=== PATIENT | male | born 1945 | race Caucasian/White ===

== ENCOUNTER → 2017-06-01 | Outpatient (CLI) | payer MEDICARE ==
--- NOTE | 2017-06-02 09:47 | CT ---
EXAMINATION TYPE: CT abdomen pelvis w con DATE OF EXAM: 06/01/2017 COMPARISON: 09/02/2014 HISTORY: Periumbilical abdominal pain with history of abdominal hernia repair and cholecystectomy. CT DLP: 1643 mGycm Automated exposure control for dose reduction was used. TECHNIQUE: Helical acquisition of images was performed from the lung bases through the pelvis. CONTRAST: Performed with Oral Contrast and with IV Contrast, patient injected with 100 mL of Isovue 300. FINDINGS: LUNG BASES: No significant abnormality is appreciated. LIVER/GB: Hepatic parenchyma is diffusely hypoattenuated in comparison to that of the spleen, most co mmonly seen in hepatic steatosis. This finding limits evaluation for hepatic masses. No gross evidenc e of hepatic mass is seen. No intrahepatic biliary ductal dilatation. Gallbladder is surgically absen t. PANCREAS: No significant abnormality is seen. SPLEEN: No significant abnormality is seen. ADRENALS: No significant abnormality is seen. KIDNEYS: There is redemonstration of a 8 mm left upper pole nonobstructing renal calculus. The kidney s enhance and excrete symmetrically without hydronephrosis. FREE AIR: No free air is visualized. ADENOPATHY: No greater than 1 cm short axis lymph nodes are seen within the abdomen or pelvis. REPRODUCTIVE ORGANS: The prostate gland is heterogenous containing central zone calcifications and mi ldly enlarged measuring 4.5 cm in transverse dimension. URINARY BLADDER: No significant abnormality is seen. OSSEOUS STRUCTURES: Mild to moderate multilevel degenerative disc disease is present of the visualiz ed thoracolumbar spine. BOWEL: Scattered colonic diverticula are present without pericolonic fat stranding. There is no evid ence of bowel dilatation. Small bowel is also nonenlarged and unremarkable. No focal small bowel wall thickening. OTHER: Right lateral abdominal wall fat attenuated lipomatous lesion measures 6.5 cm favored to repre sent a simple lipoma. This is stable from the prior 2014. Moderate calcific atheromatous changes are present of the abdominal aorta and its branches. IMPRESSION: 1. HEPATIC STEATOSIS. 2. NONOBSTRUCTING 8 MM LEFT RENAL CALCULUS. NO EVIDENCE OF HYDRONEPHROSIS BILATERALLY. 3. COLONIC DIVERTICULOSIS WITHOUT EVIDENCE OF ACUTE DIVERTICULITIS. 4. ENLARGED HETEROGENOUS PROSTATE GLAND.
== END | disposition home or self-care (01) ==
LOC: RADCTMAIN 16:28
PROVIDERS: ATTEND Family Medicine
DX: K76.0 Fatty (change of) liver, not elsewhere classified (principal); N20.0 Calculus of kidney; K57.30 Diverticulosis of large intestine without perforation or abscess without bleeding; N40.0 Benign prostatic hyperplasia without lower urinary tract symptoms
CPT/HCPCS: 74177; Q9967

== ENCOUNTER → 2019-04-20 | Outpatient (CLI) | payer MEDICARE ==
--- NOTE | 2019-04-20 10:56 | US ---
EXAMINATION TYPE: US abdomen complete DATE OF EXAM: 04/20/2019 COMPARISON: NONE CLINICAL HISTORY: R10.9 Abdominal pain. Pain EXAM MEASUREMENTS: Liver Length: 16.8 cm Gallbladder Wall: Surgically absent cm CBD: .6 cm Spleen: 12.6 cm Right Kidney: 10.7 x 4.6 x 5.3 cm Left Kidney: 11.1 x 5.1 x 4.2 cm Pancreas: Tail obscured by overlying bowel gas Liver: There is increased echogenicity of the hepatic parenchyma with diminished visualization of th e portal triads most commonly relating to hepatic steatosis and limiting evaluation for underlying he patic masses. Gallbladder: Surgically absent Evidence for sonographic Mistry's sign: No CBD: wnl Spleen: wnl Right Kidney: wnl Left Kidney: wnl Upper IVC: wnl Abd Aorta: wnl The intrahepatic portion of the IVC and proximal abdominal aorta are within normal limits. Common shu e duct is unremarkable. The visualized portions of the pancreas are homogenous. The spleen is unrem arkable. Kidneys are symmetric and free of hydronephrosis. No renal lesions are seen. IMPRESSION: Sonographic findings most commonly related to hepatic steatosis. Correlate with liver fun ction tests.
== END | disposition home or self-care (01) ==
LOC: RADUSWWP 09:37
PROVIDERS: ATTEND Internal Medicine Gastroenterology
DX: R10.9 Unspecified abdominal pain (principal)
CPT/HCPCS: 76700

== ENCOUNTER → 2020-07-04 | Outpatient (CLI) | payer MEDICARE ==
--- NOTE | 2020-07-04 16:24 | MR ---
EXAMINATION TYPE: MR lumbar spine wo con DATE OF EXAM: 07/04/2020 COMPARISON: Lumbar MRI dated 09/13/2014 HISTORY: Radiculopathy, lumbar region TECHNIQUE: Multiplanar, multisequence images of the lumbar spine were acquired. L1-L2: Posterior disc bulge causes anterior mass effect on the thecal sac. Only mild spinal stenosis. No evident foraminal encroachment. L2-L3: Posterior disc bulge causes anterior mass effect on the thecal sac. There is been progression of the spinal stenosis likely contributed by short pedicles, there is some facet arthropathy change. No significant foraminal encroachment. L3-L4: Posterior broad-based disc bulge is anterior mass effect on the thecal sac. Facet arthropathy with hypertrophy ligamentum flavum causes some posterior lateral mass effect on the thecal sac. Circu mferential extension endplate disc complex encroaches somewhat on the neural foramen greater on the r ight. Spinal stenosis is moderate and has progressed compared to prior exam. L4-L5: Posterior extension endplate disc complex causes anterior mass effect on the thecal sac. Facet arthropathy with hypertrophy ligamentum flavum causes posterior lateral mass effect on the thecal sa c, spinal stenosis has progressed and is moderate, trefoil appearance of the thecal sac is present, c ircumferential extension endplate disc complex and the facet arthropathy encroaches the bilateral for ambar. Lateral recess stenosis is also present as on prior exam. L5-S1: There is facet arthropathy change present with hypertrophy ligamentum flavum. Posterior extens ion endplate disc complex may contact the proximal S1 nerve roots, circumferential extension endplate disc complex results in foraminal encroachment bilaterally, facet arthropathy contributes to cause f oraminal encroachment as well as lateral recess stenosis Lumbar segments are intact. No paraspinal masses are identified. Conus medullaris has a normal appe arance. Again noted is multilevel spondylosis with endplate discogenic marrow signal change. Loss of disc height signal is greatest at L5-S1, multilevel vacuum phenomenon also present. Lumbar vertebral bodies show stable height, alignment. IMPRESSION: There is been some progression of spinal stenosis at L4-5, L3-4 to prior exam. Multilevel degenerativ e disc disease, foraminal encroachment, facet arthropathy.
== END | disposition home or self-care (01) ==
LOC: RADMRIMAIN 12:36
PROVIDERS: ATTEND Family Medicine
DX: M48.061 Spinal stenosis, lumbar region without neurogenic claudication (principal); M51.16 Intervertebral disc disorders with radiculopathy, lumbar region; M12.88 Other specific arthropathies, not elsewhere classified, other specified site
CPT/HCPCS: 72148

== ENCOUNTER → 2020-08-30 | Outpatient (CLI) | payer MEDICARE ==
--- NOTE | 2020-08-30 17:34 | XR ---
EXAMINATION TYPE: XR ankle complete LT DATE OF EXAM: 08/30/2020 COMPARISON: NONE HISTORY: Left ankle swelling. No known injury. M25.572 L ankle pain. TECHNIQUE: AP, oblique, and lateral views of the left ankle obtained FINDINGS: No acute fracture. No dislocation. Ankle mortise is maintained. Large Achilles enthesophyte . Plantar spur. Chronic appearing well-corticated cortical irregularity of the posteromedial distal t ibial metaphysis. Degenerative change of the hindfoot and midfoot articulations. Normal mineralizatio n. No significant soft tissue swelling. No ankle joint effusion. IMPRESSION: 1. No acute fracture or dislocation. 2. Chronic osseous changes as above.
== END | disposition home or self-care (01) ==
LOC: RADXRMAIN 13:56
PROVIDERS: ATTEND Internal Medicine
DX: M25.572 Pain in left ankle and joints of left foot (principal)

== ENCOUNTER 2020-11-11 16:08 | Emergency (ER) | payer MEDICARE ==
[2020-11-11 19:10] LABS: Basophils % (A) 0 %; Eosinophils # (A) 0.1 k/uL (0-0.7); Eosinophils % (A) 1 %; HCT 50.3 % (39.0-53.0); HGB 16.4 gm/dL (13.0-17.5); Lymphocytes # (A) 1.2 k/uL (1.0-4.8); Lymphocytes % (A) 14 %; MCH 30.1 pg (25.0-35.0); MCHC 32.7 g/dL (31.0-37.0); MCV 92.2 fL (80.0-100.0); Mean Platelet Volume 9.4; Monocytes # (A) 0.3 k/uL (0-1.0); Monocytes % (A) 4 %; Neutrophils # (A) 7.2 k/uL (1.3-7.7); Neutrophils % (A) 80 %; Platelet Count 126 k/uL (150-450); RBC 5.46 m/uL (4.30-5.90); RDW 13.8 % (11.5-15.5)
[2020-11-11 19:22] LABS: ALT 34 U/L (4-49); AST 34 U/L (17-59); African American GFR (CKD) >90 (>60 ml/min/1.73 sqM); Albumin 4.8 g/dL (3.5-5.0); Alkaline Phosphatase 83 U/L (38-126); Anion Gap 10 mmol/L; Blood Urea Nitrogen 18 mg/dL (9-20); Calcium 9.7 mg/dL (8.4-10.2); Carbon Dioxide 23 mmol/L (22-30); Chloride 108 mmol/L (98-107); Creatine Kinase 104 U/L (55-170); Glucose 108 mg/dL (74-99); Magnesium 2.2 mg/dL (1.6-2.3); Non-African American GFR(CKD) 85 (>60 ml/min/1.73 sqM); Potassium 4.8 mmol/L (3.5-5.1); Sodium 141 mmol/L (137-145); Total Bilirubin 0.8 mg/dL (0.2-1.3); Total Protein 7.4 g/dL (6.3-8.2)
[2020-11-11 19:24] LABS: INR 0.9 (<1.2); Prothrombin Time 9.8 sec (9.0-12.0)
[2020-11-11 19:25] LABS: Partial Thromboplastin Time 22.3 sec (22.0-30.0)
--- NOTE | 2020-11-11 20:47 | CT ---
EXAMINATION TYPE: CT abdomen pelvis wo con DATE OF EXAM: 11/11/2020 COMPARISON: 06/01/2017 abdominal pain HISTORY: Rectal bleeding and abdominal pain x [address] DLP: 1052.4 mGycm Automated exposure control for dose reduction was used. Lung bases are clear. There is no pleural effusion. Heart size is normal. There is no pericardial eff usion. There are clips from cholecystectomy. Liver spleen stomach pancreas appear intact. The bile du cts are not dilated. There is no adrenal mass. Kidneys show normal size and contour. There is no hydronephrosis. There are a few calculi in the left kidney measuring up to 1 cm. Ureters are not dilated. There is no retroper itoneal adenopathy. There are multiple sigmoid diverticula. There is no diverticulitis. Bladder diste nds smoothly. There is no inguinal hernia. There is prostatic calcification. There is short appendix that appears normal. There is no mesenteric edema. There is no ascites or min e air. There is no bowel obstruction. There is fat density mass in the right lateral abdominal wall c onsistent with a lipoma. This measures 2 cm in thickness. The lumbar vertebra show normal alignment. There is mild degenerative hypertrophic changes in the lum bar spine. There is no compression fracture. The bony pelvis appears intact. Hip joints are intact. T here is some acetabular spurring bilaterally. IMPRESSION: No acute abnormality of the abdomen pelvis. Nonobstructing left renal calculi without significant sayda nge. Sigmoid diverticulosis without diverticulitis.
--- NOTE | 2020-11-11 21:28 | ED ---
GI Bleed HPI - General Chief complaint: GI Bleed Stated complaint: rectal bleeding for 3 days Time Seen by Provider: 11/11/20 18:42 Source: patient, RN notes reviewed Mode of arrival: ambulatory Limitations: no limitations - History of Present Illness Initial comments: 75-year-old male with a prior history of hemorrhoids diverticulitis the past who states he had the onset last evening of some blood on his tissue when he wiped himself. He stated he was some bright red with some dark red blood. He also thought he felt a when he blew be a hemorrhoid. This morning he had more blood some apparent bright red and some dark colored clots in the toilet bowl. He denies any fevers chills nausea vomiting sweats palpitations or other symptoms. MD complaint: blood on toilet paper - Related Data Home Medications Medication Instructions Recorded Confirmed Allopurinol 100 mg PO DAILY 03/14/14 10/04/14 Aspirin 81 mg PO DAILY 03/14/14 10/04/14 Enalapril Maleate 10 mg PO DAILY 03/14/14 10/04/14 Pravastatin Sodium [Pravachol] 80 mg PO HS 09/29/14 10/04/14 Previous Rx's Medication Instructions Recorded Clopidogrel [Plavix] 75 mg PO DAILY #90 tab 03/16/14 atenoloL [Tenormin] 50 mg PO DAILY #90 tab 03/16/14 Hydrocodone/Acetaminophen [[place] 1 each PO Q6HR PRN #20 tab 09/02/14 5-325] Allergies Allergy/AdvReac Type Severity Reaction Status Date / Time No Known Allergies Allergy Verified 11/11/20 16:34 Review of Systems ROS Statement: Those systems with pertinent positive or pertinent negative responses have been documented in the HPI. ROS Other: All systems not noted in ROS Statement are negative. Past Medical History Past Medical History: Hyperlipidemia, Hypertension Additional Past Medical History / Comment(s): SCIACTICA. LT KIDNEY STONE. CHANE IN BOWEL HABITS. URINARY FREQUENCY AT NIGHT. gout, diverticulosis, History of Any Multi-Drug Resistant Organisms: None Reported Past Surgical History: Heart Catheterization With Stent, Hernia Repair Additional Past Surgical History / Comment(s): ORIF LT THUMB FX. COLONOSCOPY. EGD. BILAT ING. AND UMB. HERNIA REPAIR Past Anesthesia/Blood Transfusion Reactions: No Reported Reaction Date of Last Stent Placement:: 02/2014 Past Psychological History: No Psychological Hx Reported Smoking Status: Former smoker Past Alcohol Use History: Daily Past Drug Use History: None Reported - Past Family History Father Family Medical History: Cancer General Exam - General Exam Comments Initial Comments: This a well-developed well-nourished awake alert oriented 3 male Limitations: no limitations General appearance: alert, in no apparent distress Head exam: Present: atraumatic, normocephalic, normal inspection Eye exam: Present: normal appearance, PERRL, EOMI. Absent: scleral icterus, conjunctival injection, periorbital swelling ENT exam: Present: normal exam, mucous membranes moist Neck exam: Present: normal inspection. Absent: tenderness, meningismus, lymphadenopathy Respiratory exam: Present: normal lung sounds bilaterally. Absent: respiratory distress, wheezes, rales, rhonchi, stridor Cardiovascular Exam: Present: regular rate, normal rhythm, normal heart sounds. Absent: systolic murmur, diastolic murmur, rubs, gallop, clicks GI/Abdominal exam: Present: soft, tenderness (Very mild tenderness palpation over the lower abdomen no guarding rebound masses or bruits), normal bowel sounds. Absent: distended, guarding, rebound, rigid Rectal exam: Present: normal inspection, normal rectal tone (Trace heme positive on the Hemoccult card no gross blood on my examination no overt external hemorrhoids no palpable internal hemorrhoids) Extremities exam: Present: normal inspection, full ROM, normal capillary refill. Absent: tenderness, pedal edema, joint swelling, calf tenderness Back exam: Present: normal inspection Neurological exam: Present: alert, oriented X3, CN II-XII intact Psychiatric exam: Present: normal affect, normal mood Skin exam: Present: warm, dry, intact, normal color. Absent: rash Course Vital Signs 11/11/20 16:30 Temperature 97.9 F Pulse Rate 59 L Respiratory 18 Rate Blood Pressure 151/79 O2 Sat by Pulse 95 Oximetry Medical Decision Making - Medical Decision Making I did have a long discussion with the patient and his regarding the findings at this time the patient x-rays normal hemoglobin no elevation of BUN no abdominal pain and stable vital signs. After discussion the patient will be discharged to follow-up with Dr. Russell who is he has seen before we did discuss some return parameters. Hemorrhoid is suspected as the etiology - Lab Data Result diagrams: 11/11/20 18:56 11/11/20 18:56 Lab Results 11/11/20 11/11/20 11/11/20 Range/Units 16:55 18:55 18:56 WBC 9.0 (3.8-10.6) k/uL RBC 5.46 (4.30-5.90) m/uL Hgb 16.4 (13.0-17.5) gm/dL Hct 50.3 (39.0-53.0) % MCV 92.2 (80.0-100.0) fL MCH 30.1 (25.0-35.0) pg MCHC 32.7 (31.0-37.0) g/dL RDW 13.8 (11.5-15.5) % Plt Count 126 L (150-450) k/uL MPV 9.4 Neutrophils % 80 % Lymphocytes % 14 % Monocytes % 4 % Eosinophils % 1 % Basophils % 0 % Neutrophils # 7.2 (1.3-7.7) k/uL Lymphocytes # 1.2 (1.0-4.8) k/uL Monocytes # 0.3 (0-1.0) k/uL Eosinophils # 0.1 (0-0.7) k/uL Basophils # 0.0 (0-0.2) k/uL PT (9.0-12.0) sec INR (<1.2) APTT (22.0-30.0) sec Sodium (137-145) mmol/L Potassium (3.5-5.1) mmol/L Chloride (98-107) mmol/L Carbon Dioxide (22-30) mmol/L Anion Gap mmol/L BUN (9-20) mg/dL Creatinine (0.66-1.25) mg/dL Est GFR (CKD-EPI)AfAm (>60 ml/min/1.73 sqM) Est GFR (CKD-EPI)NonAf (>60 ml/min/1.73 sqM) Glucose (74-99) mg/dL Calcium (8.4-10.2) mg/dL Magnesium (1.6-2.3) mg/dL Total Bilirubin (0.2-1.3) mg/dL AST (17-59) U/L ALT (4-49) U/L Alkaline Phosphatase (38-126) U/L Creatine Kinase (55-170) U/L Troponin I <0.012 (0.000-0.034) ng/mL Total Protein (6.3-8.2) g/dL Albumin (3.5-5.0) g/dL Stool Occult Blood (Negative) Blood Type Blood Type Confirm B Negative Blood Type Recheck Bld Type Recheck Status Antibody Screen Spec Expiration Date 11/11/20 11/11/20 11/11/20 Range/Units 18:56 18:56 18:56 WBC (3.8-10.6) k/uL RBC (4.30-5.90) m/uL Hgb (13.0-17.5) gm/dL Hct (39.0-53.0) % MCV (80.0-100.0) fL MCH (25.0-35.0) pg MCHC (31.0-37.0) g/dL RDW (11.5-15.5) % Plt Count (150-450) k/uL MPV Neutrophils % % Lymphocytes % % Monocytes % % Eosinophils % % Basophils % % Neutrophils # (1.3-7.7) k/uL Lymphocytes # (1.0-4.8) k/uL Monocytes # (0-1.0) k/uL Eosinophils # (0-0.7) k/uL Basophils # (0-0.2) k/uL PT 9.8 (9.0-12.0) sec INR 0.9 (<1.2) APTT 22.3 (22.0-30.0) sec Sodium 141 (137-145) mmol/L Potassium 4.8 (3.5-5.1) mmol/L Chloride 108 H (98-107) mmol/L Carbon Dioxide 23 (22-30) mmol/L Anion Gap 10 mmol/L BUN 18 (9-20) mg/dL Creatinine 0.87 (0.66-1.25) mg/dL Est GFR (CKD-EPI)AfAm >90 (>60 ml/min/1.73 sqM) Est GFR (CKD-EPI)NonAf 85 (>60 ml/min/1.73 sqM) Glucose 108 H (74-99) mg/dL Calcium 9.7 (8.4-10.2) mg/dL Magnesium 2.2 (1.6-2.3) mg/dL Total Bilirubin 0.8 (0.2-1.3) mg/dL AST 34 (17-59) U/L ALT 34 (4-49) U/L Alkaline Phosphatase 83 (38-126) U/L Creatine Kinase 104 (55-170) U/L Troponin I (0.000-0.034) ng/mL Total Protein 7.4 (6.3-8.2) g/dL Albumin 4.8 (3.5-5.0) g/dL Stool Occult Blood Positive (Negative) Blood Type Blood Type Confirm Blood Type Recheck Bld Type Recheck Status Antibody Screen Spec Expiration Date 11/11/20 Range/Units 18:56 WBC (3.8-10.6) k/uL RBC (4.30-5.90) m/uL Hgb (13.0-17.5) gm/dL Hct (39.0-53.0) % MCV (80.0-100.0) fL MCH (25.0-35.0) pg MCHC (31.0-37.0) g/dL RDW (11.5-15.5) % Plt Count (150-450) k/uL MPV Neutrophils % % Lymphocytes % % Monocytes % % Eosinophils % % Basophils % % Neutrophils # (1.3-7.7) k/uL Lymphocytes # (1.0-4.8) k/uL Monocytes # (0-1.0) k/uL Eosinophils # (0-0.7) k/uL Basophils # (0-0.2) k/uL PT (9.0-12.0) sec INR (<1.2) APTT (22.0-30.0) sec Sodium (137-145) mmol/L Potassium (3.5-5.1) mmol/L Chloride (98-107) mmol/L Carbon Dioxide (22-30) mmol/L Anion Gap mmol/L BUN (9-20) mg/dL Creatinine (0.66-1.25) mg/dL Est GFR (CKD-EPI)AfAm (>60 ml/min/1.73 sqM) Est GFR (CKD-EPI)NonAf (>60 ml/min/1.73 sqM) Glucose (74-99) mg/dL Calcium (8.4-10.2) mg/dL Magnesium (1.6-2.3) mg/dL Total Bilirubin (0.2-1.3) mg/dL AST (17-59) U/L ALT (4-49) U/L Alkaline Phosphatase (38-126) U/L Creatine Kinase (55-170) U/L Troponin I (0.000-0.034) ng/mL Total Protein (6.3-8.2) g/dL Albumin (3.5-5.0) g/dL Stool Occult Blood (Negative) Blood Type B Negative Blood Type Confirm Blood Type Recheck No Previous Record Bld Type Recheck Status CABO Indicated Antibody Screen NEGATIVE Spec Expiration Date 11/14/2020 4858 - Radiology Data Radiology results: report reviewed (Imaging reviewed evidence of diverticulosis no diverticulitis), image reviewed Disposition Clinical Impression: GI bleed, Hemorrhoids Disposition: HOME SELF-CARE Condition: Good Instructions (If sedation given, give patient instructions): Gastrointestinal Bleeding (ED), Hemorrhoids (ED) Is patient prescribed a controlled substance at d/c from ED?: No Referrals: Nola Rainey MD [STAFF PHYSICIAN] - 1-2 days
[2020-11-11 21:46] VITALS: BP 173/93; PULSE 58; RESP 16; TEMP 98
== END 2020-11-11 21:49 | disposition home or self-care (01) ==
LOC: EC 16:08
DX: K92.2 Gastrointestinal hemorrhage, unspecified (principal); K64.9 Unspecified hemorrhoids; E78.5 Hyperlipidemia, unspecified; I10 Essential (primary) hypertension; M10.9 Gout, unspecified; Z87.891 Personal history of nicotine dependence; Z79.899 Other long term (current) drug therapy
CPT/HCPCS: 36415; 74176; 80053; 82272; 82550; 83735; 84484; 85025; 85610; 85730; 86850; 86900; 86901; 99285

== ENCOUNTER 2020-12-13 07:52 | Day surgery (SDC) | payer MEDICARE ==
[2020-12-11 09:01] VITALS: BMI 35.6
--- NOTE | 2020-12-13 07:38 | P.GSHP ---
History of Present Illness H&P Date: 12/13/20 CHIEF COMPLAINT: Colon screen HISTORY OF PRESENT ILLNESS: The patient is a 75-year-old male who presents for colon screen. Lower endoscopy was offered for further evaluation and management. PAST MEDICAL HISTORY: Please see list. PAST SURGICAL HISTORY: Please see list. MEDICATIONS: Please see list. ALLERGIES: Please see list. SOCIAL HISTORY: No illicit drug use FAMILY HISTORY: No reports of Crohn disease or ulcerative colitis. REVIEW OF ORGAN SYSTEMS: CONSTITUTIONAL: No reports of fevers or chills. PHYSICAL EXAM: VITAL SIGNS: Stable GENERAL: Well-developed pleasant in no acute distress. HEENT: No scleral icterus. Extraocular movements grossly intact. Moist buccal mucosa. NECK: Supple without lymphadenopathy. CHEST: Unlabored respirations. Equal bilateral excursions. CARDIOVASCULAR: Regular rate and rhythm. Distal 2+ pulses. ABDOMEN: Soft, nontender, nondistended. MUSCULOSKELETAL: No clubbing, cyanosis, or edema. ASSESSMENT: 1. Colon screen. PLAN: 1. Recommend proceeding with a lower endoscopy Past Medical History Past Medical History: GI Bleed, Hyperlipidemia, Hypertension Additional Past Medical History / Comment(s): SCIACTICA. LT KIDNEY STONE. CHANGE IN BOWEL HABITS. URINARY FREQUENCY AT NIGHT. gout, diverticulosis, History of Any Multi-Drug Resistant Organisms: None Reported Past Surgical History: Heart Catheterization With Stent, Hernia Repair Additional Past Surgical History / Comment(s): ORIF LT THUMB FX. COLONOSCOPY. EGD. BILAT ING. AND UMB. HERNIA REPAIR Past Anesthesia/Blood Transfusion Reactions: No Reported Reaction Additional Past Anesthesia/Blood Transfusion Reaction / Comment(s): one episode taking longer to come out of anesthesia after cholecystectomy Date of Last Stent Placement:: 02/2014 Smoking Status: Never smoker - Past Family History Father Family Medical History: Cancer Medications and Allergies Home Medications Medication Instructions Recorded Confirmed Type Allopurinol 100 mg PO DAILY 03/14/14 12/11/20 History Enalapril Maleate 10 mg PO DAILY 03/14/14 12/11/20 History atenoloL [Tenormin] 50 mg PO DAILY #90 tab 03/16/14 12/11/20 Rx Pravastatin Sodium [Pravachol] 80 mg PO HS 09/29/14 12/11/20 History Allergies Allergy/AdvReac Type Severity Reaction Status Date / Time No Known Allergies Allergy Verified 12/11/20 08:52
[~2020-12-13 07:52] MED LIST: LACTATED RINGERS 1,000 ML IV SCH; LIDOCAINE 1% (10MG/ML) FOR IV START INTRADERMA PRN
[2020-12-13 08:36] VITALS: TEMP 97.6
[2020-12-13] MEDS ORDERED: PROPOFOL 10 MG/ML 20 ML VIAL IV ONE (08:45)
[2020-12-13 09:15] VITALS: RESP 16
[2020-12-13 09:35] VITALS: BP 123/70; PULSE 97
--- NOTE | 2020-12-13 09:45 | P.PCN ---
Date of Procedure: 12/13/20 Description of Procedure: PREOPERATIVE DIAGNOSIS: Personal history of colon polyps POSTOPERATIVE DIAGNOSIS: Personal history of colon polyps Descending colon adenoma Internal hemorrhoids, grade 2 OPERATION: Colonoscopy to the ileocecal valve and appendiceal orifice, cecum Colonoscopy with cold forceps biopsy SURGEON: Nola Rainey MD. ANESTHESIA: MAC. INDICATIONS: The patient is an 75-year-old male who presents personal history of colon polyps. Last colonoscopy over 5 years. Benefits and risks were described and informed consent was obtained. DESCRIPTION OF PROCEDURE: The patient had undergone Sutab prep. The patient had been brought into the operating room and laid in the left lateral decubitus position. After adequate intravenous sedation, the rectum was examined with 2% lidocaine jelly. The prostate was unremarkable. External hemorrhoids were encountered. The rectal tone was within normal limits. No lesions were palpated in the rectal vault. An Olympus colonoscope was advanced until the cecum, ileocecal valve and appendiceal orifice were clearly viewed. The prep was good. Sigmoid diverticulosis was encountered. Colonic polyps were found and removed. No evidence of focal colitis was found. Retroflexion of the scope demonstrated grade 2 internal hemorrhoids without active bleeding or inflammation. The colon was desufflated. The patient had tolerated the procedure well. Withdrawal time was over 6 minutes. FINDINGS: Aronchick preparation quality scale 2 (1-5) Internal hemorrhoids, grade 2 with recent inflammation and bleeding External hemorrhoids, grade 2 No arteriovenous malformations. Sigmoid diverticulosis between 20-30 cm from the anal verge Removal of 1 polyps: - Cold forceps biopsy at 45 cm from the anal verge, 4 mm polyp. - Cold forceps biopsy at proximal transverse colon, 4 mm polyp. No focal colitis. RECOMMENDATIONS: Repeat colonoscopy 5 years, 2025 Plan - Discharge Summary Discharge Rx Participant: No New Discharge Prescriptions: Continue Enalapril Maleate 10 mg PO DAILY Allopurinol 100 mg PO DAILY atenoloL [Tenormin] 50 mg PO DAILY #90 tab Pravastatin Sodium [Pravachol] 80 mg PO HS Discharge Medication List Allopurinol 100 mg PO DAILY 03/14/14 [History] Enalapril Maleate 10 mg PO DAILY 03/14/14 [History] atenoloL [Tenormin] 50 mg PO DAILY #90 tab 03/16/14 [Rx] Pravastatin Sodium [Pravachol] 80 mg PO HS 09/29/14 [History] Follow up Appointment(s)/Referral(s): Nola Rainey MD [STAFF PHYSICIAN] - 01/01/21 Patient Instructions/Handouts: *Surgery [facility] - (Anesthesia) Endoscopy Discharge Instructions, Colorectal Polyps (DC), Colonoscopy (DC), Diverticulosis Diet (GEN), Diverticulosis (DC) Activity/Diet/Wound Care/Special Instructions: Repeat colonoscopy in 5 years, 2025 Discharge Disposition: HOME SELF-CARE
== END 2020-12-13 10:02 | disposition home or self-care (01) ==
LOC: ORWHC2ENDO 07:52
PROVIDERS: ATTEND Surgery Plastic and Reconstructive Surgery
DX: Z12.11 Encounter for screening for malignant neoplasm of colon (principal); K63.5 Polyp of colon; K57.30 Diverticulosis of large intestine without perforation or abscess without bleeding; K64.1 Second degree hemorrhoids; Z86.010 Personal history of colon polyps; E78.5 Hyperlipidemia, unspecified; I10 Essential (primary) hypertension; M54.30 Sciatica, unspecified side; I25.10 Atherosclerotic heart disease of native coronary artery without angina pectoris; M10.9 Gout, unspecified; F17.290 Nicotine dependence, other tobacco product, uncomplicated; Z87.442 Personal history of urinary calculi; Z87.19 Personal history of other diseases of the digestive system; R35.0 Frequency of micturition; Z95.5 Presence of coronary angioplasty implant and graft; Z98.890 Other specified postprocedural states; Z90.49 Acquired absence of other specified parts of digestive tract; Z80.9 Family history of malignant neoplasm, unspecified; Z79.899 Other long term (current) drug therapy
CPT/HCPCS: 88305; 45380; J2704

== ENCOUNTER → 2021-05-13 | Outpatient (CLI) | payer MEDICARE ==
[2021-05-13 15:37] LABS: ALT 31 U/L (10-49); AST 17 U/L (14-35); African American GFR (CKD) 86.2 (60.0-200.0); Albumin 4.6 g/dL (3.8-4.9); Albumin/Globulin Ratio 2.54 (1.60-3.17); Alkaline Phosphatase 87 U/L (41-126); BUN/Creat Ratio 18.83 Ratio (12.00-20.00); Blood Urea Nitrogen 18.6 mg/dL (9.0-27.0); Calcium 9.2 mg/dL (8.7-10.3); Carbon Dioxide 22.7 mmol/L (20.0-27.5); Chloride 109 mmol/L (96-109); Chol/HDL Ratio 2.73 Ratio; Creatine Kinase 91 U/L (35-257); Globulin 1.8 g/dL (1.6-3.3); Glucose 111 mg/dL (70-110); LDL Cholesterol,Calculated 59.4 mg/dL (0.0-131.0); Non-African American GFR(CKD) 74.4 (60.0-200.0); Potassium 4.4 mmol/L (3.5-5.5); Sodium 143 mmol/L (135-145); Total Protein 6.4 g/dL (6.2-8.2)
== END | disposition home or self-care (01) ==
LOC: LABWHC1 10:37
PROVIDERS: ATTEND Internal Medicine
DX: Z12.5 Encounter for screening for malignant neoplasm of prostate (principal); I10 Essential (primary) hypertension; E79.0 Hyperuricemia without signs of inflammatory arthritis and tophaceous disease; E78.00 Pure hypercholesterolemia, unspecified; Z29.9 Encounter for prophylactic measures, unspecified
CPT/HCPCS: 80061; 80053; 82550; 36415; G0103

== ENCOUNTER → 2021-10-17 | Outpatient (CLI) | payer MEDICARE ==
[2021-10-17 15:59] LABS: African American GFR (CKD) 97.4 (60.0-200.0); Anion Gap 11.6 mmol/L (10.00-18.00); BUN/Creat Ratio 16.15 Ratio (12.00-20.00); Blood Urea Nitrogen 14.2 mg/dL (9.0-27.0); Calcium 9.2 mg/dL (8.7-10.3); Carbon Dioxide 22.9 mmol/L (20.0-27.5); Non-African American GFR(CKD) 84.1 (60.0-200.0); Potassium 4.1 mmol/L (3.5-5.5); Uric Acid 5.6 mg/dL (3.7-8.7)
== END | disposition home or self-care (01) ==
LOC: LABWHC1 10:23
PROVIDERS: ATTEND Internal Medicine
DX: R73.9 Hyperglycemia, unspecified (principal)
CPT/HCPCS: 36415; 80048; 83036; 84550

== ENCOUNTER → 2021-11-06 | Outpatient (CLI) | payer MEDICARE ==
--- NOTE | 2021-11-06 11:38 | US ---
EXAMINATION TYPE: US duplex aorta DATE OF EXAM: 11/06/2021 COMPARISON: NONE CLINICAL HISTORY: I10 ESSENTIAL (PRIMARY) HYPERTENSION. HTN, smoker TECHNIQUE: Multiple sonographic images of the abdominal aorta are obtained. FINDINGS: EXAM MEASUREMENTS: Abdominal Aorta: Proximal: 2.5 x 2.3cm Mid: 1.8 x 1.7cm Distal: 1.7 x 1.6cm Bifurcation: RT: 1.3 x 1.2cm LT: 1.3 x 1.0cm [place] CREWMEMBER NOTES: No evidence of AAA within visualized portions IMPRESSION: No evidence of AAA
--- NOTE | 2021-11-07 13:40 | US ---
EXAMINATION TYPE: US arterial LE single level DATE OF EXAM: 11/06/2021 10:30 AM CLINICAL HISTORY: I10 ESSENTIAL (PRIMARY) HYPERTENSION. cardiac stent 8 years ago. Weakness, pain lef t leg for years Doppler Waveforms: Right: Multiphasic Left: Multiphasic Pressure Gradients: No significant gradient detected, noncompression of the right posterior tibial ar maddi Ankle-Brachial Indices: Right: 1.11 Left: 1.22 Toe Brachial Indices: Right: 0.75 Left: 0.89 IMPRESSION: Normal ankle-brachial indices
== END | disposition home or self-care (01) ==
LOC: RADUSWWP 09:43
PROVIDERS: ATTEND Internal Medicine
DX: I10 Essential (primary) hypertension (principal); E78.00 Pure hypercholesterolemia, unspecified; R09.89 Other specified symptoms and signs involving the circulatory and respiratory systems; Z87.891 Personal history of nicotine dependence
CPT/HCPCS: 93922; 93979

== ENCOUNTER → 2022-06-03 | Outpatient (CLI) | payer MEDICARE ==
[2022-06-03 16:27] LABS: ALT 25 U/L (10-49); AST 17 U/L (14-35); African American GFR (CKD) 84.4 (60.0-200.0); Albumin 4.6 g/dL (3.8-4.9); Albumin/Globulin Ratio 2.56 (1.60-3.17); Alkaline Phosphatase 82 U/L (41-126); Calcium 9.4 mg/dL (8.7-10.3); Carbon Dioxide 24.7 mmol/L (20.0-27.5); Chloride 108 mmol/L (96-109); Chol/HDL Ratio 2.58 Ratio; Creatine Kinase 119 U/L (35-257); Globulin 1.8 g/dL (1.6-3.3); Glucose 114 mg/dL (70-110); LDL Cholesterol,Calculated 70.3 mg/dL (0.0-131.0); Non-African American GFR(CKD) 72.8 (60.0-200.0); Sodium 143 mmol/L (135-145); Total Protein 6.4 g/dL (6.2-8.2); Uric Acid 6.1 mg/dL (3.7-8.7)
== END | disposition home or self-care (01) ==
LOC: LABWHC1 10:06
PROVIDERS: ATTEND Internal Medicine
DX: E79.0 Hyperuricemia without signs of inflammatory arthritis and tophaceous disease (principal); E78.00 Pure hypercholesterolemia, unspecified; R73.9 Hyperglycemia, unspecified
CPT/HCPCS: 36415; 80053; 80061; 82550; 83036; 84550

== ENCOUNTER → 2022-10-07 | Outpatient (CLI) | payer MEDICARE ==
[2022-10-07 15:49] LABS: Blood Urea Nitrogen 10.8 mg/dL (9.0-27.0); Calcium 9.7 mg/dL (8.7-10.3); Carbon Dioxide 25.5 mmol/L (21.6-31.8); Chloride 110 mmol/L (96-109); Glucose 113 mg/dL (70-110); Potassium 4.7 mmol/L (3.5-5.5); Sodium 145 mmol/L (135-145)
== END | disposition home or self-care (01) ==
LOC: LABWHC1 09:24
PROVIDERS: ATTEND Internal Medicine
DX: R73.9 Hyperglycemia, unspecified (principal)
CPT/HCPCS: 36415; 80048; 83036

== ENCOUNTER → 2023-06-01 | Outpatient (CLI) | payer MEDICARE ==
[2023-06-01 16:07] LABS: ALT 28 U/L (10-49); AST 18 U/L (14-35); Albumin 4.4 g/dL (3.8-4.9); Albumin/Globulin Ratio 2.44 Ratio (1.60-3.17); Alkaline Phosphatase 80 U/L (41-126); Blood Urea Nitrogen 13.1 mg/dL (9.0-27.0); Calcium 9.2 mg/dL (8.7-10.3); Carbon Dioxide 23.9 mmol/L (21.6-31.8); Chloride 110 mmol/L (96-109); Globulin 1.8 g/dL (1.6-3.3); Glucose 116 mg/dL (70-110); LDL Cholesterol,Calculated 63.4 mg/dL (0.0-131.0); PSA Annual Screen 0.257 ng/mL (0.000-4.000); Potassium 4.6 mmol/L (3.5-5.5); Sodium 144 mmol/L (135-145); Total Bilirubin 0.7 mg/dL (0.3-1.2); Total Protein 6.2 g/dL (6.2-8.2); Uric Acid 5.9 mg/dL (3.7-8.7); VLDL Calculation 15.26 mg/dL (5.00-40.00)
== END | disposition home or self-care (01) ==
LOC: LABWHC1 10:58
PROVIDERS: ATTEND Internal Medicine
DX: Z12.5 Encounter for screening for malignant neoplasm of prostate (principal); Z29.9 Encounter for prophylactic measures, unspecified; E78.00 Pure hypercholesterolemia, unspecified; E79.0 Hyperuricemia without signs of inflammatory arthritis and tophaceous disease; R73.9 Hyperglycemia, unspecified
CPT/HCPCS: 80061; 80053; 84550; 83036; 36415; G0103

== ENCOUNTER 2023-08-26 13:35 | Emergency (ER) | payer MEDICARE ==
--- NOTE | 2023-08-26 13:42 | ED ---
GI Bleed HPI - General Source: patient, RN notes reviewed Mode of arrival: ambulatory Limitations: no limitations <Lorna Thompson - Last Filed: 08/26/23 13:41> - General Source: patient, family, RN notes reviewed, old records reviewed - History of Present Illness MD complaint: blood on toilet paper, blood streaked stool <Paulette Najera - Last Filed: 08/27/23 10:28> - General Stated complaint: rectal bleed Time Seen by Provider: 08/26/23 13:41 - History of Present Illness Initial comments: Quick note: 77-year-old male presented to ER with chief complaint of rectal bleeding. He states has been ongoing for the past 3 days. He denies any blood thinner use. He does report a history of hemorrhoids but states that this bleeding is more than normal. He is endorsing lower abdominal pain. Denies any fevers. (Lorna Thompson) Patient is a 77-year-old gentleman with past medical history of hypertension presenting for rectal bleeding. History hemorrhoids. Patient states that in May he saw his primary care provider for similar. At that time he was told by his PCP to cleanse the area well and continue to monitor. Patient states he has had rectal bleeding intermittently since then. Over the last 3 days he has had an episode of rectal bleeding consistently each morning when having a bowel movement. He presents today because this morning when he wiped himself the tissue was saturated with blood and the blood ran down his leg. Upon arrival to the emergency department patient had another bowel movement which was softer and states that there was no blood in his stool at that point. He is not on blood thinners. He denies any lightheadedness, shortness of breath, dizziness. Denies blood in his urine. Prior abdominal surgeries include prior cholecystectomy. He 2 years ago he did have a colonoscopy done which showed polyps. He has had a history of prior rubber band ligation of prior hemo rrhoids. Endorses mild right-sided flank pain. (Paulette Najera) - Related Data Home Medications Medication Instructions Recorded Confirmed allopurinoL [Allopurinol] 100 mg PO DAILY 03/14/14 08/26/23 Atorvastatin [Lipitor] 40 mg PO HS 08/26/23 08/26/23 Telmisartan [Micardis] 80 mg PO DAILY 08/26/23 08/26/23 Previous Rx's Medication Instructions Recorded atenoloL [Tenormin] 50 mg PO DAILY #90 tab 03/16/14 Allergies Allergy/AdvReac Type Severity Reaction Status Date / Time No Known Allergies Allergy Verified 08/26/23 18:08 Review of Systems ROS Other: All systems not noted in ROS Statement are negative. <Lorna Thompson - Last Filed: 08/26/23 13:41> ROS Other: All systems not noted in ROS Statement are negative. <Paulette Najera - Last Filed: 08/27/23 10:28> ROS Statement: Those systems with pertinent positive or pertinent negative responses have been documented in the HPI. Past Medical History Past Medical History: GI Bleed, Hyperlipidemia, Hypertension Additional Past Medical History / Comment(s): SCIACTICA. LT KIDNEY STONE. CHANGE IN BOWEL HABITS. URINARY FREQUENCY AT NIGHT. gout, diverticulosis, History of Any Multi-Drug Resistant Organisms: None Reported Past Surgical History: Heart Catheterization With Stent, Hernia Repair Additional Past Surgical History / Comment(s): ORIF LT THUMB FX. COLONOSCOPY. EGD. BILAT ING. AND UMB. HERNIA REPAIR Past Anesthesia/Blood Transfusion Reactions: No Reported Reaction Additional Past Anesthesia/Blood Transfusion Reaction / Comment(s): one episode taking longer to come out of anesthesia after cholecystectomy Date of Last Stent Placement:: 02/2014 Smoking Status: Never smoker - Past Family History Father Family Medical History: Cancer <Lorna Thompson - Last Filed: 08/26/23 13:41> General Exam <Paulette - Last Filed: 08/27/23 10:28> - General Exam Comments Initial Comments: PE: CONSTITUTIONAL: no apparent distress, well appearing SKIN: warm, dry, no jaundice, hives or petechiae. No pallor EYES: pupils are equally round, extraocular movements intact without nystagmus, clear conjunctiva, non-icteric sclera, no conjunctival pallor HENT: normocephalic, atraumatic, moist mucus membranes, oropharynx clear without exudates NECK: full range of motion PULMONARY: clear to auscultation without wheezes, rhonchi, or rales, normal excursion, no accessory muscle use and no stridor CARDIOVASCULAR: regular rate, rhythm, normal S1 and S2. No appreciated murmurs. Strong radial pulses with intact distal perfusion GASTROINTESTINAL: soft, non-tender, non-distended, no palpable masses, no rebound or guarding; rectal exam performed with ENEDELIA Leong at bedside. Showed l ight brown stool, 1 small external hemorrhoid that did not appear to be bleeding, nontender, no rectal fissures, no masses palpated on rectal exam, no obvious blood noted. Hemoccult negative GENITOURINARY: Right CVA tenderness LYMPHATICS: no edema in lower extremities, no lymphadenopathy MUSCULOSKELETAL: Extremities have no gross deformity, no edema, redness, or swelling NEUROLOGIC: _a/o x 3, GCS 15, normal mentation and speech. Moves all extremities x 4 without motor or sensory deficit PSYCHIATRIC: _normal mood and affect, thought process is clear and linear (Paulette Najera) Course <Paulette Najera - Last Filed: 08/27/23 10:28> Vital Signs 08/26/23 08/26/23 08/26/23 13:38 16:55 18:04 Temperature 98.1 F Pulse Rate 71 63 59 L Respiratory 18 16 18 Rate Blood Pressure 199/89 146/116 143/77 O2 Sat by Pulse 96 96 94 L Oximetry 08/26/23 18:40 Temperature 98 F Pulse Rate 74 Respiratory 18 Rate Blood Pressure 154/79 O2 Sat by Pulse 95 Oximetry - Reevaluation(s) Reevaluation #1: Plan for CT angio to assess for GI bleed though low suspicion for this. 08/26/23 17:20 (Paulette Najera) Medical Decision Making - Lab Data Result diagrams: 08/26/23 14:09 08/26/23 14:09 <Paulette Najera - Last Filed: 08/27/23 10:28> - Medical Decision Making Was pt. sent in by a medical professional or institution (, PA, GROCERY SACKER, urgent care, hospital, or longterm...) When possible be specific @ -No Did you speak to anyone other than the patient for history (EMS, parent, family, police, friend...)? What history was obtained from this source @ -Spoke with patient's Did you review nursing and triage notes (agree or disagree)? Why? @ -I reviewed and agree with nursing and triage notes Were old charts reviewed (outside hosp., previous admission, EMS record, old EKG, old radiological studies, urgent care reports/EKG's, longterm records)? Report findings @ -Reviewed old charts, patient did have a colonoscopy performed Dr. Rainey which showed polyps Differential Diagnosis (chest pain, altered mental status, abdominal pain women, abdominal pain men, vaginal bleeding, weakness, fever, dyspnea, syncope, headache, dizziness, GI bleed, back pain, seizure, CVA, palpatations, mental health, musculoskeletal)? @Differential Lower GI Bleed: Gastritis, peptic ulcer disease, diverticulosis, inflammatory bowel disease, hemorrhoids, fissure, colitis, malignancy,this is not meant to be an all- inclusive list. Patient has not had any vomiting or hematemesis, symptoms/hx are not consistent with esophageal varices, Jayashree-Palmer tear X-rays interpreted by me (1pt min.). @ -None done CT interpreted by me (1pt min.). @ -I reviewed patient's CT scan, and agree with radiologist interpretation, I see no active contrast extravasation indicating active GI bleed U/S interpreted by me (1pt. min.). @ -None done What testing was considered but not performed or refused? (CT, X-rays, U/S, labs)? Why? @ -None What meds were considered but not given or refused? Why? @ -None Did you discuss the management of the patient with other professionals (professionals i.e. , PA, GROCERY SACKER, lab, RT, psych nurse, child welfare social worker, immigration lawyer, teacher, aviation safety officer, child welfare caseworker)? Give summary @ -Case discussed with patient's primary care provider, Dr. Najera, alerted him to patient's visit to the ED and anticipated outpatient follow up Was smoking cessation discussed for >3mins.? @ -No Was critical care preformed (if so, how long)? @ -No Were there social determinants of health that impacted care today? How? (Homelessness, low income, unemployed, alcoholism, drug addiction, transportat ion, low edu. Level, literacy, decrease access to med. care, halfway, rehab)? @ -No Was there de-escalation of care discussed even if they declined (Discuss DNR or withdrawal of care, Hospice)? DNR status @ -No What co-morbidities impacted this encounter? (DM, HTN, Smoking, COPD, CAD, Cancer, CVA, ARF, Chemo, Hep., AIDS, mental health diagnosis, sleep apnea, morbid obesity)? @ -Hypertension Was patient admitted / discharged? Hospital course, mention meds given and route, prescriptions, significant lab abnormalities, going to OR and other pertinent info. @ -Hospital course I have reviewed the patient's past medical records including triage summary, chief complaint, pertinent medical conditions, medications, surgical history, known medication allergies and previous visits to the emergency department. Patient is a pleasant 77-year-old gentleman past medical history of prior cholecystectomy, hypertension, hemorrhoids presenting for rectal bleeding, worse over the last 3 days. Initial evaluation showed appearing 77-year-old gentleman in no acute distress, accompanied by his . Patient displays no tachycardia or hypoxia on arrival. Was noted to be hypertensive however upon recheck in patient's room hypertension did improve spontaneously. Patient did note that he forgot to take his antihypertensive yesterday. Skin is pink and well-perfused. No pallor. No conjunctival pallor. Strong distal pulses. Abdomen is soft and nontender, active bowel sounds. Mild right CVA tenderness noted. Rectal exam was performed with ENEDELIA Leong as tape recorder repairer at bedside. Showed light brown stool, with 1 external hemorrhoid, nontender, not currently bleeding, no rectal fissures noted, no masses on rectal exam, Hemoccult negative. Suspect bleeding secondary to hemorrhoids, however will evaluate for diverticulitis, colitis, GI bleed with CT GI bleed study. Plan for comprenehsive labs and imaging, including CBC, type and cross, CMP, PT, PTT, urinalysis. Patient's workup significant for hemoglobin of 16, stable, urinalysis shows no blood in it. CT shows no active GI bleeding. Discussed with patient and plan to begin MiraLAX once daily so patient can achieve daily soft stools and avoid straining when having a bowel movement so as to avoid irritating hemorrhoids. We discussed plan for sitz bath's to do once or twice daily. Patient is to follow-up with his primary care provider and general surgeon, Dr. Rainey as soon as possible for further monitoring and evaluation of hemorrhoids. We discussed signs and symptoms warranting return to the emergency department, including patient's discharge paperwork. All questions were answered and patient was comfortable with plan of care and discharged in stable condition. In my medical judgment there is currently no evidence of an immediate life- threatening or surgical condition. Discharge is therefore indicated at this time. Discharge treatment instructions, follow up instructions, and appropriate emergency department return precautions were discussed with the patient and/or medical decision maker. Patient and/or medical decision maker expressed understanding of and agreed with the treatment plan, follow up instructions, and emergency department return precaution. All patient's and/or medical decision maker's questions were answered. Undiagnosed new problem with uncertain prognosis? @ -No Drug Therapy requiring intensive monitoring for toxicity (Heparin, Nitro, Insulin, Cardizem)? @ -No Were any procedures done? @ -No Diagnosis/symptom? @ -Rectal bleeding, hemorrhoids Acute, or Chronic, or Acute on Chronic? @ -Acute on chronic Uncomplicated (without systemic symptoms) or Complicated (systemic symptoms)? @ -Uncomplicated Side effects of treatment? @ -No Exacerbation, Progression, or Severe Exacerbation? @ -No Poses a threat to life or bodily function? How? (Chest pain, USA, ME, pneumonia, PE, COPD, DKA, ARF, appy, cholecystitis, CVA, Diverticulitis, Homicidal, Suicidal, threat to staff... and all critical care pts) @ -No (Paulette Najera) - Lab Data Lab Results 08/26/23 08/26/23 08/26/23 Range/Units 14:09 14:09 14:09 WBC 6.0 (3.8-10.6) k/uL RBC 5.38 (4.30-5.90) m/uL Hgb 16.1 (13.0-17.5) gm/dL Hct 50.5 (39.0-53.0) % MCV 93.8 (80.0-100.0) fL MCH 29.9 (25.0-35.0) pg MCHC 31.9 (31.0-37.0) g/dL RDW 13.4 (11.5-15.5) % Plt Count 135 L (150-450) k/uL MPV 8.8 Neutrophils % 79 % Lymphocytes % 13 % Monocytes % 6 % Eosinophils % 1 % Basophils % 0 % Neutrophils # 4.7 (1.3-7.7) k/uL Lymphocytes # 0.8 L (1.0-4.8) k/uL Monocytes # 0.4 (0-1.0) k/uL Eosinophils # 0.1 (0-0.7) k/uL Basophils # 0.0 (0-0.2) k/uL PT 10.7 (10.0-12.5) sec INR 1.0 (<1.2) APTT 23.4 (22.0-30.0) sec Sodium 140 (137-145) mmol/L Potassium 3.9 (3.5-5.1) mmol/L Chloride 110 H (98-107) mmol/L Carbon Dioxide 20 L (22-30) mmol/L Anion Gap 10 mmol/L BUN 13 (9-20) mg/dL Creatinine 0.81 (0.66-1.25) mg/dL Est GFR (CKD-EPI)AfAm >90 (>60 ml/min/1.73 sqM) Est GFR (CKD-EPI)NonAf 86 (>60 ml/min/1.73 sqM) Glucose 115 H (74-99) mg/dL Calcium 9.5 (8.4-10.2) mg/dL Total Bilirubin 1.2 (0.2-1.3) mg/dL AST 26 (17-59) U/L ALT 22 (4-49) U/L Alkaline Phosphatase 73 (38-126) U/L Total Protein 6.8 (6.3-8.2) g/dL Albumin 4.6 (3.5-5.0) g/dL Urine Color Urine Appearance (Clear) Urine pH (5.0-8.0) Ur Specific Lawrence (1.001-1.035) Urine Protein (Negative) Urine Glucose (UA) (Negative) Urine Ketones (Negative) Urine Blood (Negative) Urine Nitrite (Negative) Urine Bilirubin (Negative) Urine Urobilinogen (<2.0) mg/dL Ur Leukocyte Esterase (Negative) 08/26/23 Range/Units 17:52 WBC (3.8-10.6) k/uL RBC (4.30-5.90) m/uL Hgb (13.0-17.5) gm/dL Hct (39.0-53.0) % MCV (80.0-100.0) fL MCH (25.0-35.0) pg MCHC (31.0-37.0) g/dL RDW (11.5-15.5) % Plt Count (150-450) k/uL MPV Neutrophils % % Lymphocytes % % Monocytes % % Eosinophils % % Basophils % % Neutrophils # (1.3-7.7) k/uL Lymphocytes # (1.0-4.8) k/uL Monocytes # (0-1.0) k/uL Eosinophils # (0-0.7) k/uL Basophils # (0-0.2) k/uL PT (10.0-12.5) sec INR (<1.2) APTT (22.0-30.0) sec Sodium (137-145) mmol/L Potassium (3.5-5.1) mmol/L Chloride (98-107) mmol/L Carbon Dioxide (22-30) mmol/L Anion Gap mmol/L BUN (9-20) mg/dL Creatinine (0.66-1.25) mg/dL Est GFR (CKD-EPI)AfAm (>60 ml/min/1.73 sqM) Est GFR (CKD-EPI)NonAf (>60 ml/min/1.73 sqM) Glucose (74-99) mg/dL Calcium (8.4-10.2) mg/dL Total Bilirubin (0.2-1.3) mg/dL AST (17-59) U/L ALT (4-49) U/L Alkaline Phosphatase (38-126) U/L Total Protein (6.3-8.2) g/dL Albumin (3.5-5.0) g/dL Urine Color Colorless Urine Appearance Clear (Clear) Urine pH 6.5 (5.0-8.0) Ur Specific Lawrence 1.042 H (1.001-1.035) Urine Protein Negative (Negative) Urine Glucose (UA) Negative (Negative) Urine Ketones Negative (Negative) Urine Blood Negative (Negative) Urine Nitrite Negative (Negative) Urine Bilirubin Negative (Negative) Urine Urobilinogen <2.0 (<2.0) mg/dL Ur Leukocyte Esterase Negative (Negative) Disposition <Lorna Thompson - Last Filed: 08/26/23 13:41> Is patient prescribed a controlled substance at d/c from ED?: No <Paulette Najera - Last Filed: 08/27/23 10:28> Clinical Impression: Hemorrhoids Disposition: HOME SELF-CARE Condition: Good Instructions (If sedation given, give patient instructions): Gastrointestinal Bleeding (ED), Hemorrhoids (ED) Additional Instructions: Every disease is a spectrum and a small chance still exists that a serious condition could develop, for this reason, please monitor yourself closely for new, changing or worsening symptoms, symptoms that persist beyond 1 week, lightheadedness, dizziness, shortness of breath, pallor, new or severe abdominal pain, losing more than 1 to 2 tablespoons of blood with 1 bowel movement, inability to tolerate/keep down fluids or your medications, inability to follow up with outpatient providers as instructed and should you experience these symptoms or should you have any further concerns for your wellbeing please return to the ED or call 911 immediately. Please drink plenty of fluids, begin taking MiraLAX 1 capful once daily so you have daily soft stools the consistency of wet sand. If you begin experiencing new abdominal pain, lack of bloody stools or worsening diarrhea with taking MiraLAX please stop taking MiraLAX and call your primary care provider or return to the emergency department. Please perform "Sitz Baths" or warm water soaks with epsom salts once to twice daily on your bottom for 10-15 minutes at a time and dry the area thoroughly once completed. PLEASE call your primary care physician as soon as possible to arrange / discuss plan for followup appointment. Appointment in the next 1-3 days is strongly encouraged if possible. PLEASE let us know here before you leave if there is anything further we can do to be of any assistance. Take care and feel Better! Referrals: Nola Rainey MD [STAFF PHYSICIAN] - 1-2 days Kelvin Najera MD [Primary Care Provider] - 1-2 days
[2023-08-26 14:59] LABS: Basophils % (A) 0 %; Eosinophils # (A) 0.1 k/uL (0-0.7); Eosinophils % (A) 1 %; HCT 50.5 % (39.0-53.0); HGB 16.1 gm/dL (13.0-17.5); Lymphocytes # (A) 0.8 k/uL (1.0-4.8); Lymphocytes % (A) 13 %; MCH 29.9 pg (25.0-35.0); MCHC 31.9 g/dL (31.0-37.0); MCV 93.8 fL (80.0-100.0); Mean Platelet Volume 8.8; Monocytes # (A) 0.4 k/uL (0-1.0); Monocytes % (A) 6 %; Neutrophils # (A) 4.7 k/uL (1.3-7.7); Neutrophils % (A) 79 %; Platelet Count 135 k/uL (150-450); RBC 5.38 m/uL (4.30-5.90); RDW 13.4 % (11.5-15.5)
[2023-08-26 15:06] LABS: ALT 22 U/L (4-49); AST 26 U/L (17-59); African American GFR (CKD) >90 (>60 ml/min/1.73 sqM); Albumin 4.6 g/dL (3.5-5.0); Alkaline Phosphatase 73 U/L (38-126); Anion Gap 10 mmol/L; Blood Urea Nitrogen 13 mg/dL (9-20); Calcium 9.5 mg/dL (8.4-10.2); Carbon Dioxide 20 mmol/L (22-30); Chloride 110 mmol/L (98-107); Glucose 115 mg/dL (74-99); Non-African American GFR(CKD) 86 (>60 ml/min/1.73 sqM); Partial Thromboplastin Time 23.4 sec (22.0-30.0); Potassium 3.9 mmol/L (3.5-5.1); Prothrombin Time 10.7 sec (10.0-12.5); Sodium 140 mmol/L (137-145); Total Bilirubin 1.2 mg/dL (0.2-1.3); Total Protein 6.8 g/dL (6.3-8.2)
--- NOTE | 2023-08-26 18:01 | CT ---
EXAMINATION TYPE: CT angio abdomen pelvis CT DLP: 2810.6 mGycm, Automated exposure control for dose reduction was used. DATE OF EXAM: 08/26/2023 5:37 PM COMPARISON: 11/11/2020 CLINICAL INDICATION:Male, 77 years old with history of right flank pain, rectal bleeding, eval for GI B; PHH, right flank pain, rectal bleeding, eval for GIB TECHNIQUE: Multiple thin slice sub-millimeter images were obtained after administration of contrast. 3-D reconstructed images and maximum intensity projection images were obtained. CT angio abdomen pel vis CT Contrast: Contrast used:100 ml mL of Isovue 370 without and with IV Contrast, Oral contrast used: without Oral Contrast None FINDINGS: CTA Abdomen and pelvis: The abdominal aorta does not demonstrate aneurysmal dilatation. Atherosclero tic plaquing is identified within the abdominal aorta. The origins of the superior mesenteric artery , renal arteries, inferior mesenteric artery, and celiac axis are patent. The iliac vessels are norm al in morphology LOWER CHEST: No evidence of focal consolidation, pneumothorax or pleural effusion. LIVER: Unremarkable GALLBLADDER AND BILE DUCTS: The gallbladder surgically absent. Ther PANCREAS: Unremarkable. SPLEEN: Unremarkable. ADRENAL GLANDS: Unremarkable. KIDNEYS AND URETERS: Left nonobstructing 11 mm thickness. No hydronephrosis. No right renal calculi. No right hydronephrosis.. PELVIS BLADDER: Unremarkable REPRODUCTIVE: Unremarkable. ABDOMEN & PELVIS STOMACH AND BOWEL: No evidence of bowel obstruction. Scattered colonic diverticula. PERITONEUM: No evidence of pneumoperitoneum or free fluid. VASCULATURE: No evidence of aortic aneurysm. MUSCULOSKELETAL: No acute osseous abnormalities LYMPH NODES: No gross evidence for lymphadenopathy. SOFT TISSUE/ABDOMINAL WALL: Right chest wall intramuscular lipoma laterally measuring 5.6 x 2.1 IMPRESSION 1. No evidence for gastrointestinal hemorrhage. 2. Nonobstructing left 11 mm renal collecting. 3. Colonic diverticulosis. 4. Right lateral chest wall lipoma.
[2023-08-26 18:08] LABS: Appearance,Urine Clear (Clear); Bilirubin,Urine Negative (Negative); Blood,Urine Negative (Negative); Color,Urine Colorless; Glucose,Urine (UA) Negative (Negative); Ketones,Urine Negative (Negative); Leukocyte Esterase,Urine Negative (Negative); Nitrite,Urine Negative (Negative); PH, Urine 6.5 (5.0-8.0); Protein,Urine Negative (Negative); Specific Gravity,Urine 1.042 (1.001-1.035); Urobilinogen,Urine <2.0 mg/dL (<2.0)
[2023-08-26 18:29] VITALS: RESP 18
[2023-08-26 18:42] VITALS: BP 154/79; PULSE 74; TEMP 98
== END 2023-08-26 18:43 | disposition home or self-care (01) ==
LOC: EC 13:35
DX: K64.4 Residual hemorrhoidal skin tags (principal); D17.1 Benign lipomatous neoplasm of skin and subcutaneous tissue of trunk; K57.30 Diverticulosis of large intestine without perforation or abscess without bleeding; I10 Essential (primary) hypertension
CPT/HCPCS: 99284 ×2; 36415; 80053; 85025; 85610; 85730; 81003; 74174; Q9967

== ENCOUNTER → 2024-06-10 | Outpatient (CLI) | payer MEDICARE ==
[2024-06-10 19:05] LABS: BUN/Creat Ratio 16.11 Ratio (12.00-20.00); Blood Urea Nitrogen 14.5 mg/dL (9.0-27.0); Carbon Dioxide 19.8 mmol/L (21.6-31.8); Chloride 109 mmol/L (96-109); Chol/HDL Ratio 2.52 Ratio; Creatine Kinase 121 U/L (35-257); Glucose 104 mg/dL (70-110); LDL Cholesterol,Calculated 69.4 mg/dL (0.0-131.0); Potassium 4.3 mmol/L (3.5-5.5); Sodium 142 mmol/L (135-145); Uric Acid 6.4 mg/dL (3.7-8.7); VLDL Calculation 12.14 mg/dL (5.00-40.00)
[2024-06-10 19:06] LABS: ALT 36 U/L (10-49); AST 24 U/L (14-35); Albumin 4.5 g/dL (3.8-4.9); Albumin/Globulin Ratio 2.25 Ratio (1.60-3.17); Alkaline Phosphatase 101 U/L (41-126); Calcium 9.1 mg/dL (8.7-10.3); Total Bilirubin 0.9 mg/dL (0.3-1.2); Total Protein 6.5 g/dL (6.2-8.2)
== END | disposition home or self-care (01) ==
LOC: LABWHC1 13:07
PROVIDERS: ATTEND Internal Medicine
DX: Z12.5 Encounter for screening for malignant neoplasm of prostate (principal); E78.00 Pure hypercholesterolemia, unspecified; E79.0 Hyperuricemia without signs of inflammatory arthritis and tophaceous disease; R73.9 Hyperglycemia, unspecified
CPT/HCPCS: 80061; 80053; 82550; 84550; 83036; 36415; G0103